=== PATIENT | male | born 2000 | race African-American/Black ===

== ENCOUNTER 2021-11-24 19:27 | Emergency (ER) | payer MEDICAID ==
[~2021-11-24] VITALS: Ht 170.2 cm; Wt 61.6 kg
[2021-11-24] MEDS ORDERED: BACITRACIN 15GM TUBE TOP ONE (21:45)
[2021-11-24] MEDS ORDERED: HYDROCODONE/ACETAMINOPHEN 5/325MG TABLET PO ONE (21:45)
[2021-11-24] MEDS ORDERED: BACITRACIN ZINC OINT UDPKT TOP ONE (21:45)
[2021-11-24] MEDS ORDERED: TETANUS, DIPHTHERIA, PERTUSSIS VAC/PF 0.5ML (>10YR OLD) IM ONE (21:45)
[2021-11-24] MEDS ORDERED: LIDOCAINE HCL/PF 1% 10 MG/ML 5ML VIAL INFIL ONE (21:45)
[2021-11-24] MEDS ORDERED: BACITRACIN ZINC OINT UDPKT TOP NR (22:15)
[2021-11-24] MEDS ORDERED: LIDOCAINE HCL 1% 20ML VIAL (Pyxis) INJ INFIL NR (22:15)
[2021-11-24 23:54] VITALS: BP 126/74
== END 2021-11-24 23:54 | disposition home or self-care (01) ==
LOC: ER 19:27
DX: S61.011A Laceration without foreign body of right thumb without damage to nail, initial encounter (principal); S61.210A Laceration without foreign body of right index finger without damage to nail, initial encounter; W25.XXXA Contact with sharp glass, initial encounter; Y93.89 Activity, other specified; Y92.89 Other specified places as the place of occurrence of the external cause; Y99.8 Other external cause status
CPT/HCPCS: 12002; 73130; 90471; 90715; 99284; J3490

== ENCOUNTER 2021-12-02 14:58 | Emergency (ER) | payer MEDICAID ==
[~2021-12-02] VITALS: Ht 170.2 cm; Wt 80.0 kg
[2021-12-02 15:04] VITALS: BP 118/78
== END 2021-12-02 15:28 | disposition home or self-care (01) ==
LOC: ER 14:58
DX: Z48.00 Encounter for change or removal of nonsurgical wound dressing (principal)
CPT/HCPCS: 99281

== ENCOUNTER 2021-12-25 19:28 | Emergency (ER) | payer MEDICAID ==
[~2021-12-25] VITALS: Ht 170.2 cm; Wt 59.8 kg
[2021-12-25 20:59] VITALS: BP 110/69
== END 2021-12-25 21:14 | disposition home or self-care (01) ==
LOC: ER 19:28
DX: Z48.02 Encounter for removal of sutures (principal); R20.0 Anesthesia of skin
CPT/HCPCS: 99281

== ENCOUNTER 2022-12-24 15:54 | Emergency (ER) | payer MEDICAID ==
[~2022-12-24] VITALS: Ht 170.2 cm; Wt 59.0 kg
[2022-12-24] MEDS ORDERED: IBUP-2028 MT (16:06)
[2022-12-24] MEDS ORDERED: CYCL10TA21 MT (16:06)
[2022-12-24] MEDS ORDERED: KETOROLAC 60MG/2ML VIAL IM ONE (16:15)
[2022-12-24 16:45] VITALS: BP 120/71
== END 2022-12-24 16:28 | disposition home or self-care (01) ==
LOC: ER 15:54
DX: M54.50 Low back pain, unspecified (principal); V49.9XXA Car occupant (driver) (passenger) injured in unspecified traffic accident, initial encounter; Y93.89 Activity, other specified; Y92.89 Other specified places as the place of occurrence of the external cause; Y99.8 Other external cause status
CPT/HCPCS: 99283; J1885; Z7610; 99282

== ENCOUNTER 2024-02-01 11:07 | Emergency (ER) | payer MEDICAID ==
[~2024-02-01] VITALS: Ht 175.3 cm; Wt 59.0 kg
[~2024-02-01 11:07] MED LIST: CYCL10TA21 MT; IBUP-2028 MT
[2024-02-01 11:17] VITALS: O2SAT 100
[2024-02-01] MEDS ORDERED: IBUP-2029 MT (11:34)
[2024-02-01] MEDS: AZITHROMYCIN 500 MG TABLET PO ONE (11:45)
[2024-02-01] MEDS: CEFTRIAXONE SODIUM 500MG VIAL IM ONE (11:45)
[2024-02-01] MEDS: LIDOCAINE HCL 1% 20ML VIAL (Pyxis) INJ INFIL ONE (12:15)
[2024-02-01 13:04] VITALS: BP 124/84; PULSE 87; RESP 16; TEMP 98.8
[2024-02-01 13:16] LABS: CLARITY URINE CLEAR (CLEAR); COLOR URINE YELLOW (YELLOW); GLUCOSE URINE NEGATIVE (NEGATIVE); KETONES URINE NEGATIVE (NEGATIVE); LEUKOCYTE ESTERASE URINE 1+ (NEGATIVE); NITRITE URINE NEGATIVE (NEGATIVE); OCCULT BLOOD URINE NEGATIVE (NEGATIVE); PH URINE 6.5 (4.5-8.0); PROTEIN URINE NEGATIVE (NEGATIVE); SPECIFIC GRAVITY URINE 1.015 (1.005-1.030); UROBILINOGEN URINE 0.2 E.U./dL (0.2-1.0)
[2024-02-01 13:29] LABS: BACTERIA URINE NONE SEEN; RBC URINE 0-2 /hpf (0-2); SQUAMOUS EPITHELIAL CELL URINE RARE /lpf (RARE/1+); YEAST URINE NONE SEEN
[2024-02-04 04:08] LABS: CHLAMYDIA TRACHOMATIS NAA Negative (Negative); NEISSERIA GONORRHOEAE NAA Positive (Negative)
== END 2024-02-01 13:04 | disposition home or self-care (01) ==
LOC: ER 11:07
DX: J02.9 Acute pharyngitis, unspecified (principal); R56.9 Unspecified convulsions; R06.2 Wheezing
CPT/HCPCS: 99283; 87491; 87591; 81003; 96372; J0696; J3490